=== PATIENT | male | born 1970 | race American Indian/Alaskan Native ===

== ENCOUNTER 2020-05-31 11:18 | Outpatient (CLI) | payer BC ==
--- NOTE | 2020-05-31 13:56 | Fluoroscopy Report ---
Barium swallow Indication: FUNCTIONAL DYSPEPSIA. Technique: Single and double contrast barium technique utilized to evaluate the esophagus. Findings: No mucosal irregularity, mass, mass effect, or critical stenosis. The gastric lap band is positioned over the gastric cardia region, with mild dilatation of the distal esophagus and moderate reflux diana barbara the mid esophagus. There were no abnormal tertiary contractions as seen with dysmotility. Impression: Gastric lap band with moderate gastroesophageal reflux. Fluoroscopic time: 0.3 minutes Number of fluoroscopic images: 9 Signer Name: Brock Graf MD Signed: 05/31/2020 1:52 PM Workstation Name: [id number]
== END 2020-05-31 11:19 | disposition home or self-care (01) ==
LOC: FLUORO 11:18
PROVIDERS: ATTEND Surgery
DX: K21.9 Gastro-esophageal reflux disease without esophagitis (principal); K30 Functional dyspepsia
CPT/HCPCS: 74246

== ENCOUNTER 2020-06-11 07:53 | Day surgery (SDC) | payer BC ==
[2020-06-11] MEDS ORDERED: SODIUM CHLORIDE 0.9% 1000 ML 1,000 ML IV SCH (08:40)
--- NOTE | 2020-06-11 09:05 | Discharge Summary ---
Providers - Providers Date of Admission: 06/11/20 Date of discharge: 06/11/20 Attending physician: RAUL RAMOS MD Primary care physician: RANDELL ROBLES Hospitalization Reason for admission: egd to evaluate gastric band Condition: Good Procedures: egd Hospital course: Pt presented for a pre-op EGD as part of planning for up coming bariatric surgery and evaluation of current gastric banding system. Procedure was uneventful and pt recovered well and was discharged to home. Disposition: DC- TO HOME OR SELFCARE Final Discharge Diagnosis (Prints w/discharge instructions): gerd Core Measure Documentation - Palliative Care Palliative Care/ Comfort Measures: Not Applicable - Core Measures Any of the following diagnoses?: none Exam - Physical Exam Narrative exam: unchanged from pre-op Plan Activity: no restrictions Diet: low carbohydrate Follow up with: RANDELL ROBLES MD [Primary Care Provider] - 7 Days
--- NOTE | 2020-06-11 09:06 | Operative Report ---
Operative Report Operative Report: DATE: 06/11/20 SURGERY: Upper endoscopy. SURGEON: Nata Dave M.D. PROCEDURE: EGD with biopsy PRE OP DX: morbid obesity, GERD, hx of gastric banding POST OP DX: morbid obesity, GERD, hx of gastric banding TYPE OF ANESTHESIA: MAC. ESTIMATED BLOOD LOSS: None. COMPLICATIONS: None. SPECIMENS REMOVED: antral biopsy FINDINGS: 1. Normal banded gastric anatomy 2. gastritis INDICATIONS:INDICATION FOR PROCEDURE: Patient is a 50-year-old male with a long history of morbid obesity. He has a hx of gastric banding and increased reflux. He is having EGD to evaluate his stomach anatomy prior to planning switching to another bariatric procedure. PROCEDURE DETAILS: After consent was reviewed, patient was taken back to the operating room where patient was placed in the left lateral decubitus position and a bite block was placed in the mouth. After a time-out was called, MAC anesthesia was initiated. I then passed the endoscope into his oropharynx, into her esophagus, visualized the entire esophagus, which was all within normal limits. Z-line was noted to about 40cm from incisors. There was an expected proximal stomach narrowing from external compression from the gastric band. I then visualized the stomach and the first portion of the duodenum and there were no abnormalities I could clearly visualize with the exception of gastritis. A cold forceps biopsy of the antrum was taken and will be sent to pathology to evaluate for H.pylori. I then retroflexed the scope in the stomach and visualized the underside of the band. There were no signs of band erosion or malposition. I then desufflated the stomach and removed the endoscope. Patient tolerated procedure well and was transferred to recovery room in good and stable condition.
[2020-06-11] MEDS: hydrALAZINE 20 MG/1 ML INJ IV NR ×2 (09:15→10:10)
[2020-06-11] MEDS ORDERED: hydrALAZINE 20 MG/1 ML INJ ONE (09:36)
--- NOTE | 2020-06-11 12:02 | Anesthesia Consultation ---
Anesthesia Consult and Med Hx Date of service: 06/11/20 - Airway Anesthetic Teeth Evaluation: Good ROM Head & Neck: Adequate Mental/Hyoid Distance: Adequate Mallampati Class: Class III Intubation Access Assessment: Possibly Difficult - Pre-Operative Health Status ASA Pre-Surgery Classification: ASA3 Proposed Anesthetic Plan: MAC - Pulmonary Hx Smoking: No Hx Respiratory Symptoms: No - Cardiovascular System Hx Hypertension: Yes (patient reports he has not taken BP meds for 3 days ) Hx Heart Attack/AMI: No - Central Nervous System CVA: No - Gastrointestinal Hx Gastroesophageal Reflux Disease: No - Endocrine Hx Renal Disease: No Hx Liver Disease: No Hx Insulin Dependent Diabetes: No Hx Non-Insulin Dependent Diabetes: No Hx Thyroid Disease: No - Other Systems Hx Obesity: Yes (BMI 48)
--- NOTE | 2020-06-11 12:03 | Anesthesia Day of Surgery ---
Anesthesia Day of Surgery - Day of Surgery Patient Examined: Yes Patient H&P Reviewed: Yes Patient is NPO: Yes
[2020-06-11 12:21] VITALS: BP 125/68
--- NOTE | 2020-06-11 14:29 | Post Anesthesia Evaluation ---
- Post Anesthesia Evaluation Patient Participated: Yes Airway Patent: Yes Stable Respiratory Function: Yes Nausea/Vomiting: No Temp > 96.8F: Yes Pain Manageable: Yes Adequeate Hydration: Yes Anesthesia Complications: No
== END 2020-06-11 07:54 | disposition home or self-care (01) ==
LOC: GIO 07:53
PROVIDERS: ATTEND Surgery
DX: K21.9 Gastro-esophageal reflux disease without esophagitis (principal); E66.01 Morbid (severe) obesity due to excess calories; K29.50 Unspecified chronic gastritis without bleeding; B96.81 Helicobacter pylori [H. pylori] as the cause of diseases classified elsewhere; I10 Essential (primary) hypertension; Z68.42 Body mass index [BMI] 45.0-49.9, adult; Z91.040 Latex allergy status
CPT/HCPCS: 43239; 88305; 88342; J0360

== ENCOUNTER 2021-03-11 10:30 | Outpatient (CLI) | payer BC | END 2021-03-11 10:31 | disposition home or self-care (01) | LOC: PF 10:30 | PROVIDERS: ATTEND Surgery | DX: E66.01 Morbid (severe) obesity due to excess calories (principal); E66.2 Morbid (severe) obesity with alveolar hypoventilation | CPT/HCPCS: 94010; 94726; 94729 ==